=== PATIENT | male | born 1970 | race Caucasian/White ===

== ENCOUNTER 2023-03-07 15:38 | Emergency (ER) | payer SELFPAY ==
--- NOTE | 2023-03-07 15:39 | ED.WOUNDLAC ---
HPI - Wound/Laceration General Chief Complaint: Wound/Laceration Stated Complaint: left escobedo wounds Source: patient and RN notes reviewed Mode of arrival: ambulatory Limitations: no limitations History of Present Illness HPI narrative: Patient is a 52-year-old male who presents to the [facility] with complaints of wounds to bilateral lower legs. Patient states that he was standing near a concrete drain that was surrounded by wooden planks. Patient states that he stepped on the planks when they broke, causing him to fall forward and scraped his lower legs on the lid of the washer that was disconnected behind the machine. Patient presents with linear abrasion to the right anterior lower leg that extends down the escobedo. Patient presents with multiple skin tears and avulsion laceration to the left anterior lower leg. Bleeding of wounds is controlled upon [facility] arrival. He is neurovascularly intact distal to the injury. He denies numbness. Patient reports history of venous stasis in his lower extremities. Denies currently being on a blood thinner. States that his tetanus is up to date. Related Data Home Medications Medication Instructions Recorded Confirmed alfuzosin 10 mg tablet,extended mg PO 03/07/23 release 24 hr atorvastatin 20 mg tablet 20 mg PO DAILY 03/07/23 03/07/23 cyanocobalamin (vitamin B-12) 1,000 mcg PO DAILY 03/07/23 03/07/23 1,000 mcg tablet duloxetine 30 mg capsule,delayed 30 mg PO DAILY 03/07/23 03/07/23 release duloxetine 60 mg capsule,delayed 60 mg PO DAILY 03/07/23 03/07/23 release sprinkle topiramate 50 mg tablet 50 mg PO TID 03/07/23 03/07/23 Allergies Allergy/AdvReac Type Severity Reaction Status Date / Time Penicillins Allergy Rash Verified 03/07/23 16:22 Sulfa (Sulfonamide Allergy Rash Verified 03/07/23 16:22 Antibiotics) Tetracyclines Allergy Rash Verified 03/07/23 16:22 Review of Systems Review of Systems: CONSTITUTIONAL: Denies fever, chills, or sweats. EYES: Denies visual changes, redness, or discharge. ENT: Denies otalgia and sore throat CARDIOVASCULAR: Denies chest pain, palpitations, or edema. RESPIRATORY: Denies cough or dyspnea. GASTROINTESTINAL: Denies abdominal pain, nausea, vomiting, or diarrhea. GENITOURINARY: Denies dysuria or hematuria. SKIN: Denies rash or itching. Reports wounds to bilateral anterior lower legs. MUSCULOSKELETAL: Denies back pain, joint pain, or myalgia. NEUROLOGIC: Denies headache, numbness, or weakness. Pertinent positives per HPI. PMFSH Comments At the time of my signature, I reviewed and agree with the nursing past medical, surgical, social, and family history. There is no relevant family history pertinent to the patient complaint. Exam Narrative: GENERAL: This is a well-nourished, well-developed patient, in no apparent distress. HEAD: normocephalic, atraumatic. EYES: Sclera clear/white. Vision is grossly intact. EARS: External ears normal. Hearing grossly intact. NOSE: External nose normal with no obvious nasal discharge, nares without redness, no rhinorrhea. THROAT: Mucous membranes moist, posterior pharynx clear. NECK: Neck supple, non-tender without lymphadenopathy, masses or thyromegaly. CARDIOVASCULAR: Regular rate and rhythm without murmurs, gallops, or rubs. RESPIRATORY: Clear to auscultation. Breath sounds equal bilaterally. No wheezes, rales, or rhonchi. GASTROINTESTINAL: Abdomen soft, non-tender, nondistended. Bowel sounds are active. No hepato-splenomegaly. No guarding. Umbilical hernia present. SKIN: warm with no suspicious lesions. 15 cm linear abrasion noted to right anterior lower leg with no active bleeding. 3 wounds noted to left anterior lower leg (proximal to distal): 3.5 cm V-shaped avulsion skin tear connected to 2.5 cm abrasion, 3 cm skin tear, and 3 cm skin tear. Bleeding is controlled. Patient is neurovascularly intact distal to injuries on bilateral legs. Sensation is intact. Cap refill is normal. NEURO: awake, a
[2023-03-07 15:45] VITALS: BP 141/80; PULSE 90; RESP 16; TEMP 36.3; O2SAT 96
== END 2023-03-07 16:30 | disposition home or self-care (01) ==
PROVIDERS: Emergency Provider Nurse Practitioner
DX: S81.812A Laceration without foreign body, left lower leg, initial encounter (principal); S80.811A Abrasion, right lower leg, initial encounter; W19.XXXA Unspecified fall, initial encounter; E78.00 Pure hypercholesterolemia, unspecified; N40.0 Benign prostatic hyperplasia without lower urinary tract symptoms; I87.8 Other specified disorders of veins; G40.909 Epilepsy, unspecified, not intractable, without status epilepticus
CPT/HCPCS: 99213; G0463